=== PATIENT | female | born 1965 | race African-American/Black ===

== ENCOUNTER 2025-03-20 08:13 | Emergency (ER) | payer MEDICAID, OTHER ==
[~2025-03-20] VITALS: Ht 165.1 cm; Wt 71.0 kg
[2025-03-20 08:16] VITALS: TEMP 98.1; O2SAT 100
[2025-03-20] MEDS: LEVETIRACETAM 1000MG PREMIX 100 ML IV ONE (08:48)
[2025-03-20 08:57] LABS: BASOPHILS % 0.4 % (0.0-2.0); EOSINOPHILS % 0.3 % (0.0-5.0); HEMATOCRIT. 39.8 % (36.0-48.0); HEMOGLOBIN. 13.2 g/dL (12.0-16.0); LYMPHOCYTES % 20.6 % (20.0-50.0); MEAN PLATELET VOLUME 6.9 fl (7.4-10.4); MONOCYTES % 5.1 % (2.0-8.0); NEUTROPHILS % 73.6 % (40.0-76.0); PLATELET 272 x1000/uL (130-400); RED BLOOD CELL COUNT 3.89 mill/uL (4.2-5.4); RED CELL DISTRIBUTION WIDTH 18.1 % (11.6-14.6)
[2025-03-20 09:12] LABS: CREATININE 0.8 mg/dL (0.6-1.0); UREA NITROGEN BLOOD 8 mg/dL (9-23)
[2025-03-20 09:13] LABS: ETHANOL BLOOD < 10 mg/dL (<10)
[2025-03-20 10:36] VITALS: BP 158/80; PULSE 91; RESP 17; O2SAT 98
== END 2025-03-20 12:00 | disposition home or self-care (01) ==
LOC: ER 08:13
DX: G40.401 Other generalized epilepsy and epileptic syndromes, not intractable, with status epilepticus (principal); E87.8 Other disorders of electrolyte and fluid balance, not elsewhere classified; I10 Essential (primary) hypertension; Z55.6 Problems related to health literacy; Z95.0 Presence of cardiac pacemaker
CPT/HCPCS: 80048; 80320; 85025; 36415; 70450; 93005; 96365; 99285; J1953; G0480